=== PATIENT | female | born 1990 | race Caucasian/White ===

== ENCOUNTER 2019-11-01 05:33 | Inpatient (IN) ==
[2019-11-01] MEDS ORDERED: CITRIC ACID/SODIUM CITRATE 30 ML UDCUP PO ONE (05:42)
[2019-11-01] MEDS ORDERED: ONDANSETRON 4 MG/2 ML VIAL IV PRN ×2 (05:42→10:00)
[2019-11-01] MEDS ORDERED: FAMOTIDINE 20 MG/2 ML VIAL IV ONE (05:42)
[2019-11-01] MEDS ORDERED: OXYTOCIN/LR 20 UNIT/1,000 ML BAG IV ONE (05:44)
[2019-11-01] MEDS ORDERED: CLINDAMYCIN INJ 900 MG in PREMIX 1 EACH IV ONE (05:44)
[2019-11-01] MEDS: LACTATED RINGERS 1,000 ML IV PRN ×2 (06:00→20:00)
[2019-11-01 06:28] LABS: Basophils # 0.1 10*3/uL (0.0-0.2); Basophils % 0.5 % (0.0-0.8); Eosinophils # 0.1 10*3/uL (0.0-0.87); Eosinophils % 1.1 % (0.00-10.9); Hemoglobin 11.3 GM/DL (12.0-16.0); Immature Granulocytes % 1.5 %; Immature Granulocytes Absolute 0.14 #; Lymphocytes # 1.7 10*3/uL (1.4-4.0); Lymphocytes % 18.3 % (21.3-54.2); Mean Corpuscular HGB Conc 33.2 GM/DL (32-36); Mean Corpuscular Volume 88.5 FL (87-102); Mean Platelet Volume 9.7 FL (9.6-12.0); Monocytes % 6.3 % (1.7-12.7); Neutrophils % 72.3 % (38.7-73.9); Platelet Count 246 T/CUMM (130-400); Red Blood Count 3.84 MC/CUMM (3.8-5.5); Red Cell Distribution Width 14.6 % (9.3-17.3); White Blood Count 9.3 T/CUMM (4-12)
[2019-11-01 06:50] LABS: Alanine Aminotransferase 13 U/L (13-56); Albumin 2.7 G/DL (3.4-5.0); Alkaline Phosphatase 161 U/L (45-117); Aspartate Amino Transferase 15 U/L (0-37); Bilirubin,Total < 0.39 MG/DL (0.2-1.0); Blood Urea Nitrogen 8 MG/DL (7-18); Calcium 8.5 MG/DL (8.5-10.1); Estimated Glom Filtration Rate 118 ML/MIN; Glucose 82 MG/DL (74-106); Osmolality,Calculated 264.2 MOS/KG (273-304); Total Protein 6.6 G/DL (6.4-8.3)
[2019-11-01] MEDS ORDERED: BUPIVACAINE SPINAL 0.75% 2 ML AMP SPINAL ONE (07:06)
[2019-11-01] MEDS ORDERED: ONDANSETRON 4 MG/2 ML VIAL ONE (07:06)
[2019-11-01] MEDS ORDERED: MORPHINE 10 MG/10 ML VIAL ONE (07:06)
[2019-11-01] MEDS ORDERED: METOCLOPRAMIDE 10 MG/2 ML VIAL ONE (07:06)
[2019-11-01] MEDS ORDERED: BUPIVACAINE MPF 0.5% /EPI 30 ML VIAL ONE (07:06)
[2019-11-01] MEDS ORDERED: KETOROLAC 30 MG/1 ML VIAL ONE (07:07)
[2019-11-01] MEDS ORDERED: PHENYLEPHRINE 1 MG/10 ML SYRINGE IV ONE (07:07)
[2019-11-01] MEDS ORDERED: LACTATED RINGERS 1,000 ML IV ONE (07:07)
[2019-11-01] MEDS ORDERED: METHYLERGONOVINE 0.2 MG/1 ML AMP ONE (07:58)
[2019-11-01] MEDS ORDERED: CARBOPROST TROMETHAMINE 250 MCG/ML AMP IM ONE (07:58)
[2019-11-01] MEDS ORDERED: TRANEXAMIC ACID 1,000 MG/10 ML VIAL ONE (07:58)
[2019-11-01] MEDS ORDERED: miSOPROStoL 200 MCG TABLET ONE (07:58)
[2019-11-01] MEDS ORDERED: OXYTOCIN 20 UNIT in SODIUM CHLORIDE 0.9% 1,000 ML IV ONE (10:00)
[2019-11-01] MEDS ORDERED: DIPH/TET/ACEL PERT BOOSTER VACCINE 0.5 ML VIAL IM ONE (10:00)
[2019-11-01] MEDS ORDERED: BENZOCAINE 20%/MENTHOL 0.5% SPRAY 56 GM CAN TOP PRN (10:00)
[2019-11-01] MEDS ORDERED: ACETAMINOPHEN 325 MG TABLET PO PRN (10:00)
[2019-11-01] MEDS ORDERED: HYDROCORTISONE 2.5% RECTAL CREAM 30 GM TUBE TOP PRN (10:00)
[2019-11-01] MEDS ORDERED: BISACODYL 10 MG SUPP RECTAL PRN (10:00)
[2019-11-01] MEDS ORDERED: MEASLES/MUMPS/RUBELLA VACCINE 0.5 ML VIAL SUBCUT ONE (10:00)
[2019-11-01] MEDS ORDERED: WITCH HAZEL PADS 100/JAR TOP PRN (10:00)
[2019-11-01] MEDS ORDERED: RHO(D) IMMUNE GLOBULIN 300 MCG SYRINGE IM ONE (10:00)
[2019-11-01] MEDS ORDERED: LANOLIN 50% CREAM 0.3 OZ TUBE TOP PRN (10:00)
[2019-11-01] MEDS ORDERED: oxyCODONE/ACETAMINOPHEN 5-325 MG TABLET PO PRN ×2 (10:00)
[2019-11-01 10:18] LABS: Apearance,Urine CLEAR (Clear); Bilirubin,Urine Negative (Negative); Blood, Urine Negative (Negative); Glucose,Urine (UA) Negative (Negative); Ketones,Urine 5 mg/dL (Negative); Mucus,Urine Occasional /LPF (Occasional); Nitrite,Urine Negative (Negative); Protein,Urine Negative; RBC,Urine <1 /HPF (0-4); Urine Color Straw (Yellow); Urine Urobilinogen < 2.0 EU/DL (0.2-1.0)
[2019-11-01] MEDS ORDERED: propofoL 200 MG/20 ML VIAL IV ONE (10:31)
[2019-11-01] MEDS ORDERED: GLYCOPYRROLATE 0.4 MG/2 ML VIAL ONE (10:32)
[2019-11-01] MEDS: CLINDAMYCIN INJ 900 MG in PREMIX 1 EACH IV SCH (17:15)
[2019-11-01] MEDS ORDERED: PROMETHAZINE 25 MG/1 ML VIAL IM PRN (19:09)
[2019-11-01] MEDS ORDERED: KETOROLAC 30 MG/1 ML VIAL IV PRN (21:03)
[2019-11-01] MEDS: DOCUSATE SODIUM 100 MG CAPSULE PO SCH (21:06)
[2019-11-02] MEDS: CLINDAMYCIN INJ 900 MG in PREMIX 1 EACH IV SCH (00:12)
[2019-11-02] MEDS: IBUPROFEN 800 MG TABLET PO PRN ×3 (05:18→21:47)
[2019-11-02 06:10] LABS: Basophils % 0.2 % (0.0-0.8); Eosinophils % 0.3 % (0.00-10.9); Hemoglobin 10.6 GM/DL (12.0-16.0); Immature Granulocytes % 0.7 %; Immature Granulocytes Absolute 0.09 #; Lymphocytes # 1.6 10*3/uL (1.4-4.0); Lymphocytes % 11.9 % (21.3-54.2); Mean Corpuscular HGB Conc 33.1 GM/DL (32-36); Mean Corpuscular Volume 89.6 FL (87-102); Mean Platelet Volume 9.6 FL (9.6-12.0); Monocytes % 6.5 % (1.7-12.7); Neutrophils % 80.4 % (38.7-73.9); Platelet Count 228 T/CUMM (130-400); Red Blood Count 3.57 MC/CUMM (3.8-5.5); Red Cell Distribution Width 14.5 % (9.3-17.3); White Blood Count 13.5 T/CUMM (4-12)
[2019-11-02] MEDS: DOCUSATE SODIUM 100 MG CAPSULE PO SCH ×2 (09:08→21:15)
[2019-11-02] MEDS ORDERED: MAGNESIUM HYDROXIDE SUSP 30 ML UDCUP PO PRN (21:02)
[2019-11-03 07:33] VITALS: BP 105/63
[2019-11-03] MEDS: DOCUSATE SODIUM 100 MG CAPSULE PO SCH (09:30)
[2019-11-03] MEDS: IBUPROFEN 800 MG TABLET PO PRN (09:30)
== END 2019-11-03 12:20 | disposition home or self-care (01) | DRG 788 ==
LOC: N.LDOUT 05:33 → N.LD 05:34 → N.OB 12:51
PROVIDERS: ADMIT Specialist; ATTEND Specialist
PROC: LDCSECT (ICD-10-PCS; 2019-11-01 08:30)